=== PATIENT | male | born 1955 | race Caucasian/White ===

== ENCOUNTER 2024-02-29 20:10 | Emergency (ER) | payer OTHER ==
[~2024-02-29] VITALS: Ht 190.5 cm; Wt 86.2 kg
[~2024-02-29 20:10] MED LIST: IRON325 M1 PO; LISINOPRIL20 MG PO; MELOXICAM15 MG PO; PRILOSEC20 MG PO; Sarafem20 MG PO
[2024-02-29] MEDS ORDERED: METFORMIN HCL500 M2 PO (20:58)
== END 2024-03-01 00:19 | disposition home or self-care (01) ==
LOC: ED 20:10
DX: U07.1 COVID-19 (principal); I10 Essential (primary) hypertension; K21.9 Gastro-esophageal reflux disease without esophagitis; F41.9 Anxiety disorder, unspecified; F32.A Depression, unspecified; Z98.890 Other specified postprocedural states